=== PATIENT | female | born 1980 | race Caucasian/White ===

== ENCOUNTER 2017-04-14 00:40 | Outpatient (CLI) | payer BC ==
[~2017-04-14] VITALS: Ht 170.2 cm; Wt 127.0 kg
[2017-04-14 01:32] LABS: DAU SCREEN DISCLAIMER
== END 2017-04-14 03:20 | disposition home or self-care (01) ==
LOC: LDOP 00:40
PROVIDERS: ATTEND Student in an Organized Health Care Education/Training Program
DX: O09.523 Supervision of elderly multigravida, third trimester (principal); O26.893 Other specified pregnancy related conditions, third trimester; R10.9 Unspecified abdominal pain; Z3A.37 37 weeks gestation of pregnancy
CPT/HCPCS: 59025; 76819; 80307; 81001; 82962; 87086; 99201; G0463